=== PATIENT | male | born 1995 | race Caucasian/White ===

== ENCOUNTER 2021-05-05 11:25 | Emergency (ER) | payer MEDICAID ==
[~2021-05-05] VITALS: Ht 180.3 cm; Wt 91.0 kg
[~2021-05-05 11:25] MED LIST: INSLAN SQ
[2021-05-05] MEDS ORDERED: KETOROLAC 60MG/2ML VIAL IM ONE (12:45)
[2021-05-05 13:05] VITALS: BP 152/88
== END 2021-05-05 14:42 | disposition home or self-care (01) ==
LOC: ER 11:25
DX: R09.1 Pleurisy (principal); E11.9 Type 2 diabetes mellitus without complications; Z79.4 Long term (current) use of insulin
CPT/HCPCS: 71045; 96372; 99283; J1885

== ENCOUNTER 2021-08-11 12:29 | Emergency (ER) | payer MEDICAID ==
[~2021-08-11] VITALS: Ht 180.3 cm; Wt 91.0 kg
[2021-08-11 12:36] VITALS: BP 150/88
[2021-08-11] MEDS ORDERED: CEPH500C2 MT (12:57)
== END 2021-08-11 13:15 | disposition home or self-care (01) ==
LOC: ER 12:29
DX: L02.214 Cutaneous abscess of groin (principal); E11.65 Type 2 diabetes mellitus with hyperglycemia; Z79.4 Long term (current) use of insulin
CPT/HCPCS: 82962; 99283

== ENCOUNTER 2021-08-14 21:12 | Emergency (ER) | payer MEDICAID ==
[~2021-08-14] VITALS: Ht 180.3 cm; Wt 91.0 kg
[~2021-08-14 21:12] MED LIST changes: +CEPH500C2 MT
[2021-08-14] MEDS ORDERED: LIDOCAINE HCL/PF 1% 10 MG/ML 5ML VIAL INFIL ONE (23:30)
[2021-08-14] MEDS ORDERED: BACITRACIN ZINC OINT UDPKT TOP ONE (23:30)
[2021-08-14] MEDS ORDERED: ACETAMINOPHEN 325MG TABLET PO ONE (23:30)
[2021-08-15 00:10] LABS: CLARITY URINE CLEAR (CLEAR); COLOR URINE YELLOW (YELLOW); KETONES URINE TRACE (NEGATIVE); LEUKOCYTE ESTERASE URINE NEGATIVE (NEGATIVE); NITRITE URINE NEGATIVE (NEGATIVE); OCCULT BLOOD URINE NEGATIVE (NEGATIVE); PROTEIN URINE NEGATIVE (NEGATIVE); SPECIFIC GRAVITY URINE 1.044 (1.005-1.030); UROBILINOGEN URINE 0.2 E.U./dL (0.2-1.0)
[2021-08-15] MEDS ORDERED: LIDOCAINE HCL 1% 20ML VIAL (Pyxis) INJ INFIL ONE (01:00)
[2021-08-15] MEDS ORDERED: SULFAMETHOXAZOLE/TRIMETHOPRIM 800/160MG TABLET PO ONE (01:30)
[2021-08-15] MEDS ORDERED: SULF1TAB48 MT (01:30)
[2021-08-15 01:58] VITALS: BP 126/78
== END 2021-08-15 01:59 | disposition home or self-care (01) ==
LOC: ER 21:12
DX: L02.214 Cutaneous abscess of groin (principal); E11.65 Type 2 diabetes mellitus with hyperglycemia; R00.0 Tachycardia, unspecified; Z91.14 Patient's other noncompliance with medication regimen; Z79.4 Long term (current) use of insulin
CPT/HCPCS: 81003; 82962; 99283; J3490

== ENCOUNTER 2021-08-16 14:22 | Emergency (ER) | payer MEDICAID ==
[~2021-08-16] VITALS: Ht 180.3 cm; Wt 91.0 kg
[~2021-08-16 14:22] MED LIST changes: +SULF1TAB48 MT
[2021-08-16 17:14] VITALS: BP 137/83
== END 2021-08-16 17:15 | disposition home or self-care (01) ==
LOC: ER 14:22
DX: Z48.00 Encounter for change or removal of nonsurgical wound dressing (principal); E11.9 Type 2 diabetes mellitus without complications
CPT/HCPCS: 99281

== ENCOUNTER 2022-07-16 11:36 | Emergency (ER) | payer MEDICAID ==
[~2022-07-16] VITALS: Ht 180.3 cm; Wt 82.0 kg
[2022-07-16 11:49] VITALS: BP 131/85
[2022-07-16] MEDS ORDERED: MAGNESIUM/ALUMINUM HYDROXIDE/SIMETHICONE 30ML UDC PO STA (14:20)
[2022-07-16] MEDS ORDERED: ONDANSETRON 4MG ODT PO STA (14:20)
[2022-07-16] MEDS ORDERED: DICYCLOMINE 10 MG/5 ML ORAL SYR PO STA (14:20)
[2022-07-16 14:52] LABS: EOSINOPHILS % 1.4 % (0.0-5.0); HEMATOCRIT. 51.3 % (42.0-52.0); HEMOGLOBIN. 17.7 g/dL (14.0-18.0); LYMPHOCYTES % 24.9 % (20.0-50.0); MEAN CORPUSCULAR VOLUME 81.3 fL (80.0-94.0); MEAN PLATELET VOLUME 9.3 fl (7.4-10.4); MONOCYTES % 10.2 % (2.0-8.0); NEUTROPHILS % 62.5 % (40.0-76.0); PLATELET 220 x1000/uL (130-400); RED BLOOD CELL COUNT 6.32 mill/uL (4.7-6.1); RED CELL DISTRIBUTION WIDTH 13.5 % (11.6-14.6)
[2022-07-16 15:28] LABS: CHLORIDE 104 mEq/L (98-107)
== END 2022-07-16 15:57 | disposition home or self-care (01) ==
LOC: ER 11:36
DX: A08.4 Viral intestinal infection, unspecified (principal); E11.9 Type 2 diabetes mellitus without complications
CPT/HCPCS: 36415; 80053; 83690; 85025; 99284; Q0162

== ENCOUNTER 2024-03-04 11:46 | Emergency (ER) | payer MEDICAID ==
[~2024-03-04] VITALS: Ht 180.3 cm; Wt 86.2 kg
[2024-03-04 11:53] VITALS: O2SAT 100
[2024-03-04] MEDS: SODIUM CHLORIDE 0.9% 1,000 ML IV ONE ×3 (16:23→19:07)
[2024-03-04 16:29] LABS: CLARITY URINE CLEAR (CLEAR); COLOR URINE YELLOW (YELLOW); GLUCOSE URINE 3+ (NEGATIVE); KETONES URINE 2+ (NEGATIVE); LEUKOCYTE ESTERASE URINE NEGATIVE (NEGATIVE); NITRITE URINE NEGATIVE (NEGATIVE); OCCULT BLOOD URINE NEGATIVE (NEGATIVE); PROTEIN URINE 1+ (NEGATIVE); SPECIFIC GRAVITY URINE 1.051 (1.005-1.030); UROBILINOGEN URINE 0.2 E.U./dL (0.2-1.0)
[2024-03-04 16:50] LABS: BACTERIA URINE TRACE; RBC URINE NONE SEEN /hpf (0-2); SQUAMOUS EPITHELIAL CELL URINE RARE /lpf (RARE/1+)
[2024-03-04 16:51] LABS: WBC URINE 0-2 /hpf (0-2)
[2024-03-04 17:05] VITALS: TEMP 98.7
[2024-03-04 18:31] LABS: BASOPHILS % 0.9 % (0.0-2.0); EOSINOPHILS % 0.5 % (0.0-5.0); HEMOGLOBIN. 16.1 g/dL (14.0-18.0); LYMPHOCYTES % 11.7 % (20.0-50.0); MEAN CORPUSCULAR HEMOGLOBIN 29.3 pg (28.0-32.0); MEAN CORPUSCULAR VOLUME 83.5 fL (80.0-94.0); MEAN PLATELET VOLUME 10.1 fl (7.4-10.4); MONOCYTES % 8.7 % (2.0-8.0); NEUTROPHILS % 78.2 % (40.0-76.0); PLATELET 173 x1000/uL (130-400); RED BLOOD CELL COUNT 5.51 mill/uL (4.7-6.1); RED CELL DISTRIBUTION WIDTH 13.3 % (11.6-14.6); WHITE BLOOD COUNT 9.7 x1000/uL (4.5-11.0)
[2024-03-04 18:36] LABS: CHLORIDE 103 mEq/L (98-107); POTASSIUM 3.5 mEq/L (3.5-5.1); SODIUM 136 mEq/L (136-145)
[2024-03-04 18:37] LABS: CARBON DIOXIDE 26 mEq/L (21-32)
[2024-03-04 18:38] LABS: CALCIUM 8.7 mg/dL (8.7-10.4)
[2024-03-04 18:42] LABS: CREATININE 0.8 mg/dL (0.6-1.3); GLUCOSE 274 mg/dL (70-105); UREA NITROGEN BLOOD 7 mg/dL (9-23)
[2024-03-04 18:44] LABS: ALANINE AMINOTRANSFERASE 21 IU/L (10-49); ALBUMIN 4.7 g/dL (3.2-4.8); ASPARTATE AMINOTRANSFERASE 12 IU/L (<34); BILIRUBIN TOTAL 2.1 mg/dL (0.1-1.0); PROTEIN TOTAL 7.6 g/dL (6.0-8.3)
[2024-03-04 19:41] LABS: *AMPHETAMINES SCREEN URINE NEGATIVE (NEGATIVE); *BARBITURATES SCREEN URINE NEGATIVE (NEGATIVE); *BENZODIAZEPINES SCREEN URINE NEGATIVE (NEGATIVE); *COCAINE SCREEN URINE NEGATIVE (NEGATIVE)
[2024-03-04 19:42] LABS: CANNABINOID URINE SCREEN NEGATIVE (NEGATIVE); ECSTASY MDMA SCREEN URINE NEGATIVE (NEGATIVE); METHADONE URINE SCREEN NEGATIVE (NEGATIVE); OPIATES URINE SCREEN NEGATIVE (NEGATIVE); PHENCYCLIDINE URINE SCREEN NEGATIVE (NEGATIVE)
[2024-03-04 21:53] VITALS: BP 131/83; PULSE 109; RESP 16
== END 2024-03-04 22:12 | disposition home or self-care (01) ==
LOC: ER 11:46
DX: R05.9 Cough, unspecified (principal); E11.9 Type 2 diabetes mellitus without complications; Z20.822 Contact with and (suspected) exposure to COVID-19
CPT/HCPCS: 80053; 80305; 81003; 82962; 85025; 87420; 87804 ×2; 36415; 93005; 96360; 99285; 87426; J7030; Z7610